=== PATIENT | female | born 1975 | race Caucasian/White ===

== ENCOUNTER → 2025-04-12 | Outpatient (CLI) | payer OTHER, SELFPAY ==
[2025-04-12 10:15] LABS: Color, Urine Yellow (Yellow); Glucose, Dipstick Normal (Normal); Ketone-Dipstick Negative (Negative); Leukocyte Esterase-Dipstick Negative /ul (Negative); Nitrite-Dipstick Negative (Negative); Occult Blood-Urine Negative /ul (Negative); Protein-Dipstick Negative (Negative); Specific Gravity, Urine 1.015 (1.002-1.030); Urine Bilirubin Dipstick Negative (Negative)
[2025-04-12 10:17] LABS: Hematocrit 44.7 % (37-47); Hemoglobin 14.6 g/dL (12.0-15.0); Immature Granulocytes Count 0.020 X10^3/uL (0.0-0.0); Mean Corp Hgb Conc 32.7 g/dL (32-36); Mean Corpuscular Volume 88.9 fL (81-99); Mean Platelet Vol. 9.5 fl (6.2-12.0); NRBC Flagged by Analyzer 0 % (0-5); Platelet Count 270 K/mm3 (150-450); RBC Distribution Width CV 12.7 % (11.6-14.6); RBC Distribution Width SD 41.3 fl (35.1-43.9); Red Blood Count 5.03 M/mm3 (4.2-5.4); White Blood Count 7.0 K/mm3 (4.4-11.0)
[2025-04-12 10:38] LABS: Creatinine, Urine (random) 127.00 mg/dL (28.00-217.00); Protein, Urine (Random) 12.6 mg/dL (0.0-12.0); Protein:Creat Ratio 99 mg/g CRE (0-200)
[2025-04-12 11:18] LABS: AST(SGOT) 22 U/L (<=31); Alanine Aminotransfer ALT/SGPT 21 U/L (<=34); Albumin, Serum 4.1 g/dL (3.5-5.0); Alkaline Phosphatase 99 U/L (35-104); Anion Gap 13 (7-18); BUN 15 mg/dL (4-19); BUN/Creat Ratio 16.0 RATIO (10-20); Calcium,Total 8.9 mg/dL (7.6-11.0); Carbon Dioxide 24.4 mmol/L (20.0-29.0); Chloride 105 mmol/L (96-106); Globulin 2.8 g/dL (2.2-4.2); Glucose 103 mg/dL (70-99); Hepatitis B Surface Antigen Nonreactive (Nonreactive); Hepatitis C Antibody Nonreactive (Nonreactive); Potassium 4.2 mmol/L (3.5-5.1)
[2025-04-14 07:07] LABS: Dilute Russell Viper Venom 33.5 sec (0.0-47.0); Interpretation Comment: (.); PTT-LA 30.6 sec (0.0-43.5)
== END | disposition home or self-care (01) ==
PROVIDERS: PCP Family Medicine; Referring Provider Internal Medicine Rheumatology; Visit Provider Internal Medicine Rheumatology
DX: M06.4 Inflammatory polyarthropathy (principal); R76.89 Other specified abnormal immunological findings in serum; Z79.899 Other long term (current) drug therapy
CPT/HCPCS: 36415; 80053; 81002; 82570; 84156; 85025; 86706; 86803; 87340

== ENCOUNTER → 2025-04-17 | Outpatient (CLI) | payer OTHER, SELFPAY ==
[2025-04-17 14:54] LABS: EXAGEN MAILED SPECIMEN
== END | disposition home or self-care (01) ==
LOC: LAB 13:39 → MTLAB 13:39
PROVIDERS: PCP Family Medicine; Referring Provider Internal Medicine Rheumatology; Visit Provider Internal Medicine Rheumatology
DX: M06.4 Inflammatory polyarthropathy (principal); R76.89 Other specified abnormal immunological findings in serum; Z79.899 Other long term (current) drug therapy
CPT/HCPCS: 36415